=== PATIENT | female | born 1990 | race Caucasian/White ===

== ENCOUNTER 2020-09-22 05:55 | Inpatient (IN) | payer OTHER ==
--- NOTE | 2020-09-21 14:42 | P.HPOB ---
History of Present Illness H&P Date: 09/21/20 Chief Complaint: Induction of labor This is a 29 y.o. female, 2, para 1, with an estimated date of confinement of 09/26/2020, estimated gestational age of 39-3/7 weeks, who presents for induction of labor. She is feeling good movement and irregular contractions. She plans on giving baby up for adoption. course has been essentially uncomplicated. labs: Blood type-A neg Antibody screen-neg, Rhogam given approx. 28 weeks Hemoglobin-12.2 RPR-NR Hepatitis B surface antigen-neg HIV-neg GC/Chlamydia-neg Quad screen-neg Anatomy- scan-normal anatomy, low-lying placenta (later resolved) 1 hr. GTT-142; 3 hr. GTT-wnl GBS-neg OB Hx: . Hx 1 vaginal delivery at term, 7#5oz. 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 Currently living with ex- (1st ) and grandparents. Review of Systems Constitutional: Denies chills, Denies fever Eyes: denies blurred vision, denies pain Ears, nose, mouth and throat: Denies headache, Denies sore throat Cardiovascular: Denies chest pain, Denies shortness of breath Respiratory: Denies cough Gastrointestinal: Reports abdominal pain (irreg. contractions) Genitourinary: Reports pelvic pain, Reports Musculoskeletal: Reports low back pain Integumentary: Denies pruritus, Denies rash Neurological: Denies numbness, Denies weakness Psychiatric: Reports anxiety, Reports depression Past Medical History Past Medical History: Asthma Additional Past Medical History / Comment(s): uses inhaler prn, usually once or twice a month History of Any Multi-Drug Resistant Organisms: None Reported Past Surgical History: No Surgical Hx Reported Past Anesthesia/Blood Transfusion Reactions: No Reported Reaction Past Psychological History: Bipolar, Depression Additional Psychological History / Comment(s): medications in the past; Hx bipolar with severe psychiatric features (went off all meds at beginning of ). Smoking Status: Never smoker Past Drug Use History: None Reported - Past Family History Mother Family Medical History: Coronary Artery Disease (CAD), Diabetes Mellitus, Hypertension Father Family Medical History: Diabetes Mellitus Medications and Allergies Home Medications Medication Instructions Recorded Confirmed Type Albuterol Inhaler (Mhu) [Ventolin 1 - 2 puff INHALATION Q6HR PRN 06/11/14 06/11/14 History Hfa Inhaler (Mhu)] Pnv with Ca,No.72/Iron/FA 1 tab PO DAILY 06/11/14 06/11/14 History [ Plus Multivitamin Tab] Allergies Allergy/AdvReac Type Severity Reaction Status Date / Time No Known Allergies Allergy Verified 06/11/14 06:23 Exam Osteopathic Statement: *. No significant issues noted on an osteopathic structural exam other than those noted in the History and Physical/Consult. HEENT: within normal limits Heart: regular rate and rhythm Lungs: clear to auscultation bilaterally Abdomen: , non-tender Cervix: 2 cm/60%/-3 heart tones: 140's by doppler Extremities: neg. Félix's. Assessment and Plan (1) 39 weeks gestation of Status: Acute Code(s): Z3A.39 - 39 WEEKS GESTATION OF SNOMED Code(s): 31771874 Plan: Admission for induction of labor. Will plan to consult psychiatry after delivery due to history of bipolar with severe features and the fact that she's giving baby up for adoption. Expectant management. Epidural if desired.
[2020-09-22] MEDS ORDERED: METHYLERGONOVINE 0.2 MG/ML 1 ML AMP IM PRN (06:11)
[2020-09-22] MEDS ORDERED: CARBOPROST TROMETHAMINE 250 MCG/ML 1 ML AMP IM PRN (06:11)
[2020-09-22] MEDS ORDERED: LIDOCAINE 0.5% (PF) 5 MG/ML (50 ML SDV) SQ PRN (06:11)
[2020-09-22] MEDS ORDERED: OXYTOCIN 30 UNITS/500 ML NS 30 UNIT in SALINE 1 500ML.BAG IV SCH ×2 (06:11→14:42)
[2020-09-22] MEDS ORDERED: OXYTOCIN 10 UNIT/ML 1 ML VIAL IM PRN (06:11)
[2020-09-22] MEDS ORDERED: LIDOCAINE 1% (10MG/ML) FOR IV START INTRADERMA PRN (06:11)
[2020-09-22] MEDS ORDERED: TERBUTALINE 1 MG/ML VIAL SQ PRN (06:11)
[2020-09-22] MEDS: LACTATED RINGERS 1,000 ML IV SCH ×4 (06:23→14:53)
[2020-09-22 06:44] LABS: Basophils % (A) 0 %; Eosinophils # (A) 0.1 k/uL (0-0.7); Eosinophils % (A) 1 %; HCT 35.8 % (34.0-46.0); HGB 12.5 gm/dL (11.4-16.0); Lymphocytes # (A) 1.9 k/uL (1.0-4.8); Lymphocytes % (A) 16 %; MCH 30.5 pg (25.0-35.0); Mean Platelet Volume 8.9; Monocytes # (A) 0.7 k/uL (0-1.0); Monocytes % (A) 6 %; Neutrophils # (A) 8.6 k/uL (1.3-7.7); Neutrophils % (A) 76 %; Platelet Count 187 k/uL (150-450); RBC 4.12 m/uL (3.80-5.40); RDW 13.5 % (11.5-15.5); WBC 11.4 k/uL (3.8-10.6)
[2020-09-22] MEDS ORDERED: SODIUM CHLORIDE 0.9% 100 ML BAG ONE (09:52)
[2020-09-22] MEDS ORDERED: ROPIVACAINE 5MG/ML 20ML VIAL ONE (09:52)
[2020-09-22] MEDS ORDERED: fentaNYL (PF) 50 MCG/ML 5 ML AMP ONE (09:52)
[2020-09-22] MEDS ORDERED: ZOLPIDEM 5 MG TAB PO PRN (14:42)
[2020-09-22] MEDS ORDERED: BENZOCAINE/MENTHOL SPRAY 1 GM/SPRAY AEROSOL TOPICAL PRN (14:42)
[2020-09-22] MEDS ORDERED: ALBUTEROL NEBULIZED 2.5 MG/3 ML INHALATION PRN (14:42)
[2020-09-22] MEDS ORDERED: SIMETHICONE 80 MG CHEWABLE PO PRN (14:42)
[2020-09-22] MEDS ORDERED: HYDROCORTISONE 2.5% RECTAL CREAM 30 GM TUBE RECTAL PRN (14:42)
[2020-09-22] MEDS ORDERED: LANOLIN CREAM 5 GM TUBE TOPICAL PRN (14:42)
[2020-09-22] MEDS ORDERED: diphenhydrAMINE 50 MG/ML 1 ML VIAL IVP PRN ×2 (14:42)
[2020-09-22] MEDS ORDERED: diphenhydrAMINE 50 MG CAP PO PRN (14:42)
[2020-09-22] MEDS ORDERED: diphenhydrAMINE 25 MG CAP PO PRN (14:42)
[2020-09-22] MEDS: IBUPROFEN 600 MG TAB PO SCH ×2 (15:13→20:00)
--- NOTE | 2020-09-22 17:32 | P.PROBDLV ---
Vaginal Delivery Note - . Vaginal Delivery Note: The patient progressed to complete dilation after oxytocin induction of labor and artificial rupture membranes with clear fluid noted. She did receive epidural anesthesia. Once reaching complete, she began pushing. 's head came to a crown. With one further push, the infant's head delivered across the perineum followed by the anterior shoulder. Nose and mouth were bulb suctioned at the perineum and then with one remaining push, the remainder the infant eas sarai delivered and was placed on mother's abdomen. Cord was clamped and cut and infant was taken to warmer for evaluation. A viable female infant was noted with scores of 9 at 1 minute and 9 at 5 minutes and infant weight was 7 pounds 8.3 ounces. Cord blood was obtained secondary to Rh- status. Placenta delivered shortly thereafter, intact, with a three-vessel cord. Uterus contracted well after oxytocin was given and uterine massage was carried out. Inspection of the perineum revealed a left periurethral and a first degree perineal laceration. These areas were anesthetized with 1% lidocaine. The left periurethral laceration was sutured with 3-0 Vicryl suture in a running locked fashion. The first-degree laceration on the perineum was anesthetized with 1% lidocaine and then sutured with 2-0 Vicryl suture in a running multilayer fashion. Estimated blood loss is approximately 200 mL's. Both mother and infant are in stable condition.
[2020-09-22] MEDS: ACETAMINOPHEN TAB 325 MG TAB PO PRN ×2 (18:36→23:45)
[2020-09-22] MEDS: SENNOSIDES-DOCUSATE SODIUM 1 EACH TAB PO SCH (20:49)
[2020-09-23] MEDS: IBUPROFEN 600 MG TAB PO SCH ×4 (05:10→16:48)
[2020-09-23] MEDS ORDERED: Rhogam IMMUNE GLOBULIN 1,500 UNIT/1 ML IM ONE (05:13)
--- NOTE | 2020-09-23 05:13 | P.DS ---
Providers Date of admission: 09/22/20 05:55 Expected date of discharge: 09/23/20 Attending physician: Maria Guadalupe Rothman Consults: 09/22/20 14:42 Consult Physician Urgent Consulting Provider: Psychiatry - [facility] Psychiatry Consult Reason/Comments: History of bipolar with severe features, baby up for adoption Do you want consulting provider notified?: Yes Primary care physician: Stated None - Discharge Diagnosis(es) (1) 39 weeks gestation of Current Visit: No Status: Acute Hospital Course: This is a 29-year-old female 2 para 1 at 39-3/7 weeks who presented for induction of labor. She underwent oxytocin induction of labor and delivered vaginally a viable female infant with scores of 9 at 1 minute and 9 at 5 minutes and weight of 7 pounds 8.3 ounces. Her course so far has been essentially uncomplicated. Her lochia is moderate. Her pain is fairly well controlled with ibuprofen. She states so far she is doing okay emotionally. She is giving the baby up for adoption and the adoptive parents are present in the hospital. Psychiatry has been consulted to arrange for outpatient follow-up and this consultation is pending at this time. Vital signs are stable. Abdomen is soft with fundus firm and nontender. Extremities show negative Homans. Impression is status post vaginal delivery day #1. Plan is to discharge home either later today or tomorrow morning depending on when baby is discharged. Will await psychiatry accommodations prior to discharge. I have advised the patient I would like to see her in approximately 1-2 weeks for an early visit to make sure she is doing okay. She will also schedule a 6 week visit. She is advised to call the office if she has any further questions or concerns prior to her visits. I will give her a prescription for ibuprofen. Procedures: Oxytocin induction of labor Spontaneous vaginal delivery of a viable female on 09/22/2020 Patient Condition at Discharge: Stable Plan - Discharge Summary New Discharge Prescriptions: New Ibuprofen [Motrin] 600 mg PO Q6H #60 tab Continue Pnv with Ca,No.72/Iron/FA [ Plus Multivitamin Tab] 1 tab PO DAILY Albuterol Inhaler (Mhu) [Ventolin Hfa Inhaler (Mhu)] 1 - 2 puff INHALATION Q6HR PRN PRN Reason: Bronchospasm Discharge Medication List Albuterol Inhaler (Mhu) [Ventolin Hfa Inhaler (Mhu)] 1 - 2 puff INHALATION Q6HR PRN 06/11/14 [History] Pnv with Ca,No.72/Iron/FA [ Plus Multivitamin Tab] 1 tab PO DAILY 06/11/14 [History] Ibuprofen [Motrin] 600 mg PO Q6H #60 tab 09/23/20 [Rx] Follow up Appointment(s)/Referral(s): Maria Guadalupe Rothman DO [Doctor of Osteopathic Medicine] - 1 Week (Follow-up in 1 week for an early checkup and in 6 weeks for normal visit) Activity/Diet/Wound Care/Special Instructions: JULISSA AguilarARDylon [facility] Office: ext. [phone] Instructions 1. Do not begin any exercise program for 3 weeks. 2. Do not resume sexual relations for 3 weeks or longer if uncomfortable. 3. You may take tub baths or showers at any time. 4. You may use tampons if desired after 3 weeks. 5. Keep the area of episiotomy (stitches) clean and dry. 6. If you are not nursing, wear a good fitting, supportive bra during the day and limit fluid intake for at least 1 week to prevent breast engorgement. 7. Call the office, [phone], within the next week to make appointment for your 6 week checkup if it has not already been made. 8. Report any of the following occurrences to the doctor promptly: a. Heavy, excessive bleeding b. Chills, fever c. Burning or frequency of urination d. Pain or redness and breasts if nursing e. Increasing pain or swelling in episiotomy (stitches). In addition to the above instructions, the following additional should be followed: 1. No heavy lifting or straining (exercising) until after 6 week checkup. 2. Keep abdominal incision clean and dry: You may wear a dressing if more comfortable. 3. Make office appointment for 10 days after going home or as instructed by her doctor. Discharge Disposition: HOME SELF-CARE
[2020-09-23 06:40] LABS: Basophils % (A) 0 %; Eosinophils # (A) 0.1 k/uL (0-0.7); Eosinophils % (A) 1 %; HCT 30.7 % (34.0-46.0); Lymphocytes # (A) 1.5 k/uL (1.0-4.8); Lymphocytes % (A) 14 %; MCHC 32.5 g/dL (31.0-37.0); MCV 89.3 fL (80.0-100.0); Monocytes # (A) 0.5 k/uL (0-1.0); Monocytes % (A) 5 %; Neutrophils # (A) 8.6 k/uL (1.3-7.7); Neutrophils % (A) 80 %; Platelet Count 138 k/uL (150-450); RBC 3.43 m/uL (3.80-5.40); RDW 14.1 % (11.5-15.5); WBC 10.8 k/uL (3.8-10.6)
[2020-09-23] MEDS: ACETAMINOPHEN TAB 325 MG TAB PO PRN ×4 (08:19→23:09)
[2020-09-23 10:12] VITALS: RESP 16
[2020-09-23] MEDS: SENNOSIDES-DOCUSATE SODIUM 1 EACH TAB PO SCH ×2 (10:13→20:33)
--- NOTE | 2020-09-23 14:22 | P.CN ---
Psychiatric Consult - . Consult date: 09/23/20 Consult:: 09/23/20 14:16 IDENTIFYING DATA: This patient is a 29-year-old female who currently lives with her ex- and his grandparents and is currently unemployed and has 2 children REASON FOR REFERRAL: Psychiatry was consulted for a history of bipolar disorder HISTORY OF PRESENT ILLNESS: The patient presented to the hospital for labor and delivery. Patient apparently had care which was uncomplicated. Patient underwent successful vaginal delivery on September 22. Patient's nurse had no complaints about the patient. Patient was seen in her room today and was agreeable to speak to technical writer. Patient claims that she is feeling some muscle strain in her neck and back after the delivery however states that it went fairly well. She claims that she had the baby yesterday and will be giving the baby up for adoption. She had concerns about the baby going to [place] and her not being able to see the baby. She states that she currently is having a "stable mood" and is denying any fluctuations. She states that she does not have any racing thoughts or flight of ideas. She states that she has had a history of bipolar disorder diagnosed in 2013. She states that she is to follow-up with a psychiatrist in [place] however has been in [place] now and has not been following up for several months. She states that she has been off her psychiatric medications which included Abilify Lamictal and Celexa for over 9 months since the . She states that her sleep is fair . At this time patient denies any suicidal or homical ideations, intent or plan. Patient denies any auditory, visual hallucinations and denies any paranoia or delusions. Patients admits to using no recreational drugs or cigarettes PAST PSYCHIATRIC HISTORY: Patient has a a history of bipolar disorder diagnosed 2013. She states that she was previously on Lamictal, Celexa and Abilify. She states that she was hospitalized once in [place] when she is 14 years old. Patient denies any psychiatric outpatient follow-up. She claims that she had 1 suicide attempt in 2004 when she tried to stab herself with a metal can. PAST MEDICAL HISTORY: Asthma. ALLERGIES: as per EMR. CHEMICAL DEPENDENCY HISTORY: as per HPI. FAMILY PSYCHIATRIC/SUBSTANCE USE HISTORY: States that her brother has bipolar disorder and ADHD SOCIAL HISTORY: Patient was born and raised in [place]. She states that she lives in several different places including [place] and [place]. States that currently she lives with her ex- and grandparents. She states that she is currently unemployed. She states that she has had 2 children in the past. Her first child had been taken away from her by CPS due to neglect and the second child which she just had will be going to a foster family. 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 MENTAL STATUS EXAM: General Appearance: Patient appears to be overweight, stated age is alert, pleasant, and attempts to be cooperative. Patient appears to have fair hygiene and grooming wearing hospital gown with fair eye contact. Behavior: Patient is calmly lying in bed without any agitated behavior. Speech: Patient's speech is fluent and nonpressured. Mood/Affect: Patient reports their mood is "stable", affect is congruent Suicidality/Homicidality: Patient denies having any suicidal or homicidal ideation intent or plan. Perceptions: Patient denies any visual hallucinations and denies any auditory hallucinations Though content/process: There is no evidence of any delusional thought content and thought process is linear and goal-directed. Memory and concentration: AOX3, grossly intact for the purposes of this session. Can spell "WORLD" backwards Judgment and insight: Fair IMPRESSIONS: Bipolar disorder unspecified PLAN: -At this time patient DOES NOT meet criteria for inpatient psychiatric admission. -Would recommend the following medication changes/additions: We'll start patient on Abilify 2.5 mg daily for mood stabilization. Patient was previously on Lamictal and Celexa however will not restart this due to patient not being able to be followed in the hopsital. Patient will need to be connected with [facility] upon discharge for appropriate psychiatric follow-up. -fruit harvest worker to provide patient with outpatient mental health/psychiatry resources for appropriate follow up upon discharge -Communicated plan to patient's nurse -Psychiatry will sign off at this time -Please contact with any questions.
[2020-09-23] MEDS: PRENATAL VIT-IRON-FOLIC ACID 1 EACH CAP PO SCH ×2 (14:51→16:48)
[2020-09-23] MEDS: ARIPiprazole 5 MG TAB PO SCH (16:48)
[2020-09-24] MEDS: IBUPROFEN 600 MG TAB PO SCH ×2 (02:35→08:59)
[2020-09-24] MEDS: ACETAMINOPHEN TAB 325 MG TAB PO PRN (05:19)
--- NOTE | 2020-09-24 07:14 | P.PNOBGVD ---
Subjective - Subjective Patient reports: Reports appetite normal, Reports voiding normally, Reports pain well controlled, Reports ambulating normally : doing well Objective - Latest Vital Signs Latest vital signs: Vital Signs Temp Pulse Resp BP 09/23/20 23:28 98.2 F 72 16 09/23/20 16:00 97.9 F 83 16 112/74 09/23/20 08:00 98.2 F 83 16 110/67 Intake and Output 09/23/20 09/24/20 09/24/20 22:59 06:59 14:59 Intake Total 250 Balance 250 Intake: Oral 250 Other: # Voids 1 - Exam Lungs: bilateral: normal Chest: Normal S1, Normal S2 Extremities: Present: normal Abdomen: Present: normal appearance, soft Uterus: Present: normal, firm Assessment and Plan Assessment: Patient is resting overnight without complaints. Vital signs are stable she's afebrile. Patient was seen and evaluated by psychiatry. Patient's felt stable for discharge home today and follow up with Dr. Rai is scheduled. (1) Vaginal delivery Current Visit: No Status: Acute Code(s): [id number] - SNOMED Code(s): 162492514
[2020-09-24] MEDS: ARIPiprazole 5 MG TAB PO SCH (08:55)
[2020-09-24 09:20] VITALS: BP 104/67; PULSE 75; TEMP 98.1
== END 2020-09-24 09:50 | disposition home or self-care (01) | DRG 807 ==
LOC: 4FBP 05:55
PROVIDERS: ADMIT Obstetrics & Gynecology; ATTEND Obstetrics & Gynecology
PROC: 10E0XZZ Delivery of Products of Conception, External Approach (ICD-10-PCS; principal; 2020-09-22)
PROC: 0HQ9XZZ Repair Perineum Skin, External Approach (ICD-10-PCS; 2020-09-22)
DX: O70.0 First degree perineal laceration during delivery (principal); Z37.0 Single live birth; O71.82 Other specified trauma to perineum and vulva; F32.9 Major depressive disorder, single episode, unspecified; J45.909 Unspecified asthma, uncomplicated; O99.344 Other mental disorders complicating childbirth; O99.52 Diseases of the respiratory system complicating childbirth; Z3A.39 39 weeks gestation of pregnancy; Z82.49 Family history of ischemic heart disease and other diseases of the circulatory system; Z83.3 Family history of diabetes mellitus
CPT/HCPCS: 85025; 85461; 86850; 86900; 86901

== ENCOUNTER 2020-12-16 06:07 | Day surgery (SDC) | payer OTHER ==
[2020-12-13 14:19] VITALS: BMI 30.8
--- NOTE | 2020-12-15 20:29 | P.HPOB ---
History of Present Illness H&P Date: 12/15/20 Chief Complaint: Family planning This is a 30 y.o. female, 2, para 2, who presents for laparoscopic bilateral tubbal ligation via fulgaration for family planning. She recently delivered her last child and gave her child up for adoption. She understands this is a permanent procedure. OB Hx: . 2 vaginal delivery. 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 Unemployed. Review of Systems Constitutional: Denies chills, Denies fever Eyes: denies blurred vision, denies pain Ears, nose, mouth and throat: Denies headache, Denies sore throat Cardiovascular: Denies chest pain, Denies shortness of breath Respiratory: Denies cough Gastrointestinal: Denies abdominal pain, Denies diarrhea, Denies nausea, Denies vomiting Genitourinary: Denies dysuria, Denies hematuria, Denies Musculoskeletal: Reports low back pain, Denies myalgias Integumentary: Denies pruritus, Denies rash Neurological: Denies numbness, Denies weakness Psychiatric: Reports anxiety, Reports depression Past Medical History Past Medical History: Asthma Additional Past Medical History / Comment(s): ENVIRONMENTAL ALLERGIES, ACTIVITY INDUCED ASTHMA, LOWER BACK PAIN. History of Any Multi-Drug Resistant Organisms: None Reported Past Surgical History: Cholecystectomy Past Anesthesia/Blood Transfusion Reactions: No Reported Reaction Past Psychological History: Anxiety, Bipolar, Depression Additional Psychological History / Comment(s): . Smoking Status: Never smoker Past Alcohol Use History: None Reported Past Drug Use History: None Reported - Past Family History Mother Family Medical History: Coronary Artery Disease (CAD), Diabetes Mellitus, Hypertension Father Family Medical History: Diabetes Mellitus Medications and Allergies Home Medications Medication Instructions Recorded Confirmed Type RX: Albuterol Inhaler (Mhu) 1 - 2 puff INHALATION Q6HR PRN 06/11/14 12/16/20 History [Ventolin Hfa Inhaler (Mhu)] RX: Citalopram Hydrobromide 20 mg PO DAILY 12/13/20 12/16/20 History [CeleXA] Vitamin D -Unknown Dose 1 tab PO DAILY 12/13/20 History lamoTRIgine [LaMICtal] 25 mg PO HS 12/13/20 12/16/20 History Allergies Allergy/AdvReac Type Severity Reaction Status Date / Time No Known Allergies Allergy Verified 12/16/20 06:43 Exam Osteopathic Statement: *. No significant issues noted on an osteopathic structural exam other than those noted in the History and Physical/Consult. HEENT: within normal limits Heart: regular rate and rhythm Lungs: clear to auscultation bilaterally Abdomen: soft, non-tender Pelvic: Uterus small, anteverted, non-tender, no adnexal masses or tenderness Extremities: neg. Félix's Assessment and Plan (1) Family planning Current Visit: No Status: Acute Code(s): Z30.09 - ENCOUNTER FOR OT GENERAL CNSL AND ADVICE ON CONTRACEPTION SNOMED Code(s): 118652316 Plan: Proceed with laparoscopic bilateral tubal ligation via fulgaration. I have discussed the risks, benefits, and alternative therapies for the above- mentioned procedure and for both sedation/anesthesia as well as necessary blood products administration, if indicated, as they pertain to this patient. The patient has indicated her understanding and acceptance of the risks and procedures discussed.
[~2020-12-16 06:07] MED LIST: Pre Op ABX Message 1 EACH MISC MISCELLANE ONE
[2020-12-16] MEDS ORDERED: ONDANSETRON 4 MG/2 ML VIAL ONE (06:51)
[2020-12-16] MEDS ORDERED: LIDOCAINE 1% (10MG/ML) FOR IV START INTRADERMA ONE (07:00)
[2020-12-16] MEDS: LACTATED RINGERS 1,000 ML IV ONE ×2 (07:00→09:35)
[2020-12-16] MEDS ORDERED: LACTATED RINGERS 1,000 ML IV ONE (07:00)
[2020-12-16] MEDS ORDERED: DEXAMETHASONE SOD PHOSPHATE 4 MG/ML 1 ML VIAL IVP ONE (07:09)
[2020-12-16] MEDS ORDERED: ONDANSETRON 4 MG/2 ML VIAL IVP ONE (07:10)
[2020-12-16] MEDS ORDERED: NEOSTIGMINE 1 MG/ML 10 ML VIAL ONE (07:25)
[2020-12-16] MEDS ORDERED: MIDAZOLAM 2 MG/2 ML VIAL ONE (07:25)
[2020-12-16] MEDS ORDERED: GLYCOPYRROLATE 0.2 MG/ML 2 ML VIAL ONE (07:25)
[2020-12-16] MEDS ORDERED: LIDOCAINE 1% INJ 10MG/ML (20 ML MDV) ONE (07:25)
[2020-12-16] MEDS ORDERED: ROCURONIUM 10 MG/ML (5 ML VIAL) IV ONE (07:25)
[2020-12-16] MEDS ORDERED: PROPOFOL 10 MG/ML 20 ML VIAL IV ONE (07:25)
[2020-12-16] MEDS ORDERED: KETOROLAC 15 MG/ML 1 ML VIAL ONE (07:25)
[2020-12-16] MEDS ORDERED: SUCCINYLCHOLINE CHLORIDE 100 MG/5 ML SYR IV ONE (07:25)
[2020-12-16] MEDS ORDERED: fentaNYL (PF) 50 MCG/ML 2 ML AMP ONE (07:25)
[2020-12-16] MEDS ORDERED: BUPIVACAINE (PF) 0.25% 30 ML VIAL SQ ONE (07:32)
--- NOTE | 2020-12-16 08:13 | P.OP ---
Date of Procedure: 12/16/20 Preoperative Diagnosis: Family planning Postoperative Diagnosis: Same Procedure(s) Performed: Laparoscopic bilateral tubal ligation via fulguration Anesthesia: TASHA, lenora Surgeon: Maria Guadalupe Rothman Estimated Blood Loss (ml): 10 Pathology: none sent Condition: stable Disposition: same day Indications for Procedure: This is a 30 y.o. female, 2, para 2, who presents for laparoscopic bilateral tubbal ligation via fulgaration for family planning. She recently delivered her last child and gave her child up for adoption. She understands this is a permanent procedure. Operative Findings: Normal uterus tubes and ovaries are noted. Description of Procedure: The patient is taken to the operating room where she is placed in the dorsal lithotomy position. She is prepped and draped in the normal sterile fashion. Examination is performed under anesthesia. Uterus is found to be in a anteverted position. No adnexal masses were palpated. Next a bivalve speculum was placed in the patient's vagina. A single-tooth tenaculum was used to grasp the anterior lip of the cervix. The uterus was sounded to 9.5 cm. The kroner uterine manipulator was then inserted through the cervix and the balloon was inflated. The single-tooth tenaculum is removed speculum was removed gloves were changed and attention was turned to the abdomen. A small stab incision was made with a scalpel in the infraumbilical fold. A towel clip was placed above the umbilicus for retraction. A 5 mm disposable bladeless trocar was then inserted into the peritoneal cavity under direct visualization. Once inside, pneumoperitoneum was achieved with CO2 gas. The insert was removed and the camera was placed. Intraperitoneal placement was confirmed. No bleeding was noted. Next the patient was placed in Trendelenburg position. A small stab i ncision was made suprapubically and a 5 mm disposable bladeless trocar was inserted into the peritoneal cavity under direct visualization. Once inside pelvic contents were inspected. Next a bipolar Kleppinger instrument was placed through the inferior trocar and the midportion of each tube was brought away from other structures and completely fulgurated on approximate 2-3 cm segment of each tube. Excellent hemostasis was noted. Pictures were taken. Pneumoperitoneum was released after the inferior trocar was removed under direct visualization. The upper trocar was then removed. The skin incisions were then closed with 4-0 Vicryl suture in a subcuticular fashion. Incisions were then injected with quarter percent Marcaine. Approximately 6 mL were used. Next the kroner uterine manipulator was removed. Minimal bleeding was noted. All sponge and needle counts are correct. The patient is then taken to recovery room in stable condition.
[2020-12-16 08:35] VITALS: TEMP 98.1
[2020-12-16 09:54] VITALS: BP 123/78; PULSE 78; RESP 18
== END 2020-12-16 10:13 | disposition home or self-care (01) ==
LOC: OR 06:07
PROVIDERS: ATTEND Obstetrics & Gynecology
DX: Z30.9 Encounter for contraceptive management, unspecified (principal); J45.909 Unspecified asthma, uncomplicated; F31.9 Bipolar disorder, unspecified; Z79.899 Other long term (current) drug therapy; Z83.3 Family history of diabetes mellitus; Z82.49 Family history of ischemic heart disease and other diseases of the circulatory system; Z90.49 Acquired absence of other specified parts of digestive tract
CPT/HCPCS: 58670; 81025; J2250; J1100; J2710; J2405; J2001; J3010; J1885; J0330; J2704

== ENCOUNTER → 2021-11-28 | Outpatient (CLI) | payer OTHER ==
--- NOTE | 2021-11-28 15:00 | US ---
EXAMINATION TYPE: US pelvic complete DATE OF EXAM: 11/28/2021 COMPARISON: NONE CLINICAL HISTORY: R10.2 PELVIC AND PERINEAL PAIN. Pt states pelvic pain, more on left side TECHNIQUE: Transabdominal (TA). Transabdominal sonographic images of the pelvis were acquired. Date of LMP: 11/16/2021 EXAM MEASUREMENTS: Uterus: 9.3 x 4.6 x 4.3 cm Endometrial Stripe: 0.9 cm Right Ovary: 2.7 x 2.3 x 2.2 cm Left Ovary: 2.1 x 1.4 x 2.2 cm 1. Uterus: Anteverted wnl 2. Endometrium: wnl 3. Right Ovary: Small cyst= 2.1 x 1.6 x 1.3 cm 4. Left Ovary: wnl 5. Bilateral Adnexa: wnl 6. Posterior cul-de-sac: wnl IMPRESSION: 1. Findings compatible with a 2.1 cm right ovarian cyst. Follow-up 6-8 weeks could be obtained to con firm resolution.
== END | disposition home or self-care (01) ==
LOC: RADUSWWP 14:22
PROVIDERS: ATTEND Obstetrics & Gynecology
DX: R10.2 Pelvic and perineal pain (principal)
CPT/HCPCS: 76856

== ENCOUNTER → 2022-02-22 | Outpatient (CLI) | payer OTHER ==
[2022-02-23 05:02] LABS: African American GFR (CKD) 115.1 (60.0-200.0); Albumin 4.7 g/dL (3.8-4.9); Albumin/Globulin Ratio 1.89 (1.60-3.17); Anion Gap 10.7 mmol/L (10.00-18.00); BUN/Creat Ratio 14.88 Ratio (12.00-20.00); Blood Urea Nitrogen 11.8 mg/dL (9.0-27.0); Calcium 9.8 mg/dL (8.7-10.3); Carbon Dioxide 25.2 mmol/L (20.0-27.5); Globulin 2.5 g/dL (1.6-3.3); Non-African American GFR(CKD) 99.3 (60.0-200.0); Potassium 4.7 mmol/L (3.5-5.5); Total Bilirubin 0.3 mg/dL (0.30-1.20); Total Protein 7.1 g/dL (6.2-8.2)
== END | disposition home or self-care (01) ==
LOC: LABWHC1 16:05
PROVIDERS: ATTEND Family Medicine
DX: R79.89 Other specified abnormal findings of blood chemistry (principal)
CPT/HCPCS: 36415; 80053

== ENCOUNTER → 2023-11-07 | Outpatient (CLI) | payer OTHER ==
--- NOTE | 2023-11-07 12:27 | XR ---
EXAMINATION TYPE: XR knee limited RT DATE OF EXAM: 11/07/2023 CLINICAL HISTORY: pain TECHNIQUE: 2 views of the right knee are obtained. COMPARISON: None. FINDINGS: There is no acute fracture/dislocation. The tri-compartment joint spaces appear within no rmal limits. The overlying soft tissue appears unremarkable. IMPRESSION: There is no acute fracture or dislocation.ICD 10 NO FRACTURE, INITIAL EVALUATION
== END | disposition home or self-care (01) ==
LOC: RADXRMAIN 12:03
PROVIDERS: ATTEND Family Medicine
DX: M25.561 Pain in right knee (principal)

== ENCOUNTER → 2024-07-22 | Outpatient (CLI) | payer OTHER ==
--- NOTE | 2024-07-22 11:57 | XR ---
EXAMINATION TYPE: XR wrist limited RT DATE OF EXAM: 07/22/2024 11:45 AM COMPARISON: None CLINICAL INDICATION: Female, 33 years old with history of M25.531 Pain R wrist; PH[facility], pain TECHNIQUE: XR wrist limited RT; examined in the Frontal, navicular, lateral, and oblique. FINDINGS: No acute osseous pathology, joint dislocation, or joint effusion. No evidence of any soft tissue swelling is seen. IMPRESSION: No acute osseous pathology. [facility], , 07/22/2024 11:55 AM
== END | disposition home or self-care (01) ==
LOC: RADXRMAIN 11:33
PROVIDERS: ATTEND Family Medicine
DX: M25.531 Pain in right wrist (principal)

== ENCOUNTER → 2024-08-19 | Outpatient (CLI) | payer OTHER ==
[2024-08-20 12:27] LABS: C. trachomatis,PCR Negative (Negative); N. gonorrhoeae,PCR Negative (Negative)
== END | disposition home or self-care (01) ==
LOC: LABWHC1 11:55
PROVIDERS: ATTEND Family Medicine
DX: Z11.3 Encounter for screening for infections with a predominantly sexual mode of transmission (principal)
CPT/HCPCS: 87491; 87591